=== PATIENT | female | born 1955 | race Caucasian/White ===

== ENCOUNTER → 2017-01-07 | Day surgery (SDC) | payer OTHER ==
[~2017-01-07] MED LIST: ACETAMINOPHEN/HYDROcodone 325 MG/5 MG TAB ONE; BEDSIDE COMMODE1 MI1; BUPIVACAINE/EPINEPHRINE 0.25% PF 30 ML VIAL ONE; CALC500T35 PO; COUM5TAB PO; CPMMACHINE; DIFL500T PO; FISH1000 PO; GABA600T PO; KETOROLAC TROMETHAMINE 30 MG/ML (IVP) VIAL IV PUSH ONE; LACTATED RINGER'S 1000 ML INJ 1,000 ML ONE; LEXA10TA PO; LISI10TA3 PO; LOVA10TA PO; METO50TA PO; MIDAZOLAM HCL 2 MG/2 ML VIAL ONE; MULT1TAB84 PO; OMEP20TA PO; ONDANSETRON HCL 4 MG/2 ML VIAL IV PUSH ONE; OXYC1TAB63 PO; PERC5TAB12 PO; PROPOFOL 200 MG/20 ML AMP IV ONE; VITA1000 PO; VITACAP7 PO; ceFAZolin INJ 1,000 MG VIAL ONE
--- NOTE | 2017-01-07 16:45 | TN ---
cc: MANUEL MCKEON DATE OF SURGERY: 01/07/2017 PREOPERATIVE DIAGNOSIS 1. Left knee painful hardware. 2. Status post left distal femur open treatment internal fixation using multiple 7.3-mm cannulated screws. 3. Left knee osteoarthritis, genu valgus deformity. POSTOPERATIVE DIAGNOSIS 1. Left knee painful hardware. 2. Status post left distal femur open treatment internal fixation using multiple 7.3-mm cannulated screws. 3. Left knee osteoarthritis, genu valgus deformity. PROCEDURE Left knee arthrotomy, removal of three 7.3 mm cannulated screws. SURGEON Zion Mckeon MD ASSESSMENT Staff SPECIMENS: None. ESTIMATED BLOOD LOSS: 200 cc. COMPLICATIONS None ANESTHESIA General. DRAINS: None. CONDITION: Condition stable PLAN OF ACTIVITY: The plan of activity is per orders. PROCEDURE The patient was operating room had satisfactory general anesthesia by Dr. Og department of Anesthesia. The left lower extremity was prepped and draped in usual sterile manner. 10 cc of 0.25% Marcaine was used for local anesthesia. Under fluoroscopic guidance identification of the hardware was made. A longitudinal incision was made laterally. Dissection carried through the center of tissue and scar tissue. Carried through the iliotibial band and a dissection was made of each three screws separately. The soft tissue bony was removed from the screw head. Then each screw was removed. Bone wax was placed over the screw holes. The wound was irrigated with copious amounts. The wound itself was dried. The Iliotibial band was repaired using 2-0 Vicryl sutures. Subcutaneous layers with 2-0 Vicryl. Skin approximated interrupted 2-0 nylon. Sterile dressings were applied. The patient tolerated the procedure well and arrived to the Recovery Room in stable and satisfactory condition. MD ISAK Vargas/mary alice /3:04 PM /4:37 PM
== END | disposition home or self-care (01) ==
LOC: ESDC 12:22
PROVIDERS: ATTEND Orthopaedic Surgery Orthopaedic Surgery of the Spine
DX: T84.84XA Pain due to internal orthopedic prosthetic devices, implants and grafts, initial encounter (principal); M17.12 Unilateral primary osteoarthritis, left knee; M21.062 Valgus deformity, not elsewhere classified, left knee
CPT/HCPCS: 01400; 20680; 73560; 76000; J0690; J1885; J2250; J2405; J3010; J7120

== ENCOUNTER 2017-02-04 16:12 | Inpatient (IN) | payer OTHER, MEDICARE ==
[~2017-02-04] VITALS: Ht 177.8 cm; Wt 100.6 kg
[2017-02-28] MEDS ORDERED: CALC500T35 PO (15:18)
[2017-02-28] MEDS ORDERED: FISH1000 PO (15:18)
[2017-02-28] MEDS ORDERED: LOVA10TA PO (15:18)
[2017-02-28] MEDS ORDERED: VITA1000 PO (15:18)
[2017-02-28] MEDS ORDERED: MULT1TAB84 PO (15:18)
[2017-02-28] MEDS ORDERED: LEXA10TA PO (15:18)
[2017-02-28] MEDS ORDERED: OMEP20TA PO (15:18)
[2017-02-28] MEDS ORDERED: OXYC1TAB63 PO (15:18)
[2017-02-28] MEDS ORDERED: METO50TA PO (15:18)
[2017-02-28] MEDS ORDERED: DIFL500T PO (15:18)
[2017-02-28] MEDS ORDERED: GABA600T PO (15:18)
[2017-02-28] MEDS ORDERED: LISI10TA3 PO (15:18)
[2017-02-28] MEDS ORDERED: VITACAP7 PO (15:18)
[2017-03-03] MEDS ORDERED: ePHEDrine/NS 25 MG/5 ML SYR IV ONE (08:49)
[2017-03-03] MEDS ORDERED: NEOSTIGMINE 3 MG/3 ML SYR IV ONE (08:49)
[2017-03-03] MEDS ORDERED: PROPOFOL 200 MG/20 ML AMP IV ONE (08:49)
[2017-03-03] MEDS ORDERED: ONDANSETRON HCL 4 MG/2 ML VIAL IV PUSH ONE (08:50)
[2017-03-03] MEDS ORDERED: LACTATED RINGER'S 1000 ML INJ 1,000 ML IV ONE (08:50)
[2017-03-03 11:57] VITALS: BP 135/87; PULSE 57; RESP 20; TEMP 98.4; O2SAT 96
[2017-03-03] MEDS ORDERED: GENTAMICIN SULFATE 80 MG/2 ML VIAL ONE (12:11)
[2017-03-03] MEDS ORDERED: LACTATED RINGER'S 1000 ML IV PRN (12:15)
[2017-03-03] MEDS ORDERED: METOPROLOL TARTRATE 25 MG TAB PO PRN (12:15)
[2017-03-03] MEDS ORDERED: SODIUM CHLORID 0.9% 500 ML IV PRN (12:15)
[2017-03-03] MEDS ORDERED: INSULIN HUMAN REGULAR 1,000 UNITS/10 ML VIAL SQ PRN (12:15)
[2017-03-03] MEDS ORDERED: ROPIVACAINE PERI-ARTICULAR INJECTION. P-ARTICULR SCH ×5 (12:15)
[2017-03-03] MEDS ORDERED: VANCOMYCIN 1000 MG/NS 250 ML (for <70 kg) IV SCH ×2 (12:15)
[2017-03-03] MEDS ORDERED: POVIDONE IODINE 5% (ANTISEPSIS KIT) 4 APPLICATIONS EACH NARE PRN (12:15)
[2017-03-03] MEDS ORDERED: CHLORHEXIDINE GLUCONATE 2 % 1 PACK (2 CLOTHS) TOPICAL PRN (12:15)
[2017-03-03] MEDS ORDERED: CHLORHEXIDINE GLUCONATE 4% SOLN 120 ML BTL TOPICAL SCH (12:15)
[2017-03-03] MEDS ORDERED: ceFAZolin 2 GM PREMIX 50 ML IV SCH (12:15)
[2017-03-03 12:44] LABS: AUTOMATED NEUTROPHIL # 2.3 TH/MM3 (1.8-7.7); BASOPHIL % 0.7 % (0.0-2.0); EOSINOPHIL # 0.1 TH/MM3 (0-0.4); EOSINOPHIL % 3.2 % (0.0-4.0); HEMATOCRIT 37.8 % (35.0-46.0); HEMO FLAGS DIFF FINAL; LYMPH % 34.3 % (9.0-44.0); LYMPHOCYTE # 1.5 TH/MM3 (1.0-4.8); MEAN CELL VOLUME 90.6 FL (80.0-100.0); MEAN CORPUSCULAR HEMOGLOBIN 29.1 PG (27.0-34.0); MEAN CORPUSCULAR HGB CONC 32.1 % (32.0-36.0); MONO % 10.1 % (0.0-8.0); NEUT % 51.7 % (16.0-70.0); PLATELET COUNT 231 TH/MM3 (150-450); RED BLOOD COUNT 4.18 MIL/MM3 (4.00-5.30); RED CELL DISTRIBUTION WIDTH 14.7 % (11.6-17.2); WHITE BLOOD COUNT 4.5 TH/MM3 (4.0-11.0)
[2017-03-03] MEDS ORDERED: FAMOTIDINE 20 MG/2 ML VIAL ONE (13:13)
[2017-03-03] MEDS ORDERED: fentaNYL CITRATE 250 MCG/5 ML AMP ONE ×3 (13:13→15:03)
[2017-03-03] MEDS ORDERED: MIDAZOLAM HCL 2 MG/2 ML VIAL ONE (13:13)
[2017-03-03] MEDS ORDERED: DEXAMETHASONE SOD PHOS 4 MG/ML VIAL ONE (13:14)
[2017-03-03] MEDS ORDERED: ACETAMINOPHEN 1000 MG/100 ML VIAL IV ONE (13:14)
[2017-03-03] MEDS ORDERED: ALUMINUM/MAGNESIUM/SIMETH 30 ML CUP PO PRN (16:30)
[2017-03-03] MEDS ORDERED: oxyCODONE/ACETAMINOPHEN 7.5 MG/325 MG TAB PO PRN (16:30)
[2017-03-03] MEDS ORDERED: ZOLPIDEM TARTRATE 5 MG TAB PO PRN (16:30)
[2017-03-03] MEDS ORDERED: Post-op Orders (for Pharmacy) MISC XX ONE (16:30)
[2017-03-03] MEDS ORDERED: ONDANSETRON HCL 4 MG/2 ML VIAL IVP PRN (16:30)
--- NOTE | 2017-03-03 16:39 | HHI.FF ---
Face to Face Verification Diagnosis: (1) Osteoarthritis of left knee Physical Therapy Gait training, Transfer training, bed to chair Knee: Total knee, Protocol: Left, Full weight bearing Canvas Knee Splint: Other (at night while sleeping for first 4 weeks ) Right LE Weight Bearing: WB as tolerated Left LE Weight Bearing: WB as tolerated Nursing RN: 3 days/week x 2 weeks Nursing: Dressing changes (clean incision with alcohol and apply dry sterile dressing ) Additional Instructions Pt/INR q Friday and , call/text results to Lennie ARAUJO [phone] I have seen patient Christiana Calzada on 03/03/17. My clinical findings support the need for the requested home health care services because: Deconditioned w/ increased weakness I certify that my clinical findings support that this patient is homebound because: Post-op weakness Masoud Sánchez MD Mar 03, 2017 16:39
--- NOTE | 2017-03-03 16:40 | HHI.PR ---
Immediate Post Op Note Procedure Date: Mar 03, 2017 Pre Op Diagnosis: R Knee Severe OA,Genu Valgus deformity Post Op Diagnosis: Same Surgeon: Masoud Sánchez MD Compressed Gas Tester(s): Lennie Dowling PA-C Procedure: R TKR Complications: None Specimen(s) removed: None Estimated blood loss: <50cc Anesthesia: General, Regional Block, Local Drains: Hemovac Patient to: PACU Patient Condition: Good Implant/Devices: SEE IMPLANT LOG (if applicable) Date/Time of Procedure: SEE SURGICAL CARE RECORD Masoud Sánchez MD Mar 03, 2017 16:40
[2017-03-03] MEDS ORDERED: BEDSIDE COMMODE1 MI1 (16:41)
[2017-03-03] MEDS ORDERED: CPMMACHINE (16:41)
[2017-03-03] MEDS ORDERED: *morphine SULFATE 8 MG/ML PERIprocedure ONLY ONE (16:47)
[2017-03-03] MEDS ORDERED: SODIUM CHLORIDE 0.9% FLUSH 10 ML FLUSH IV FLUSH PRN (17:00)
[2017-03-03] MEDS ORDERED: MORPHINE SULFATE 4 MG/ML INJ IM PRN (17:00)
[2017-03-03] MEDS ORDERED: LACTATED RINGER'S 1000 ML INJ 1,000 ML IV SCH (17:00)
--- NOTE | 2017-03-03 18:21 | RADRPT ---
EXAM DATE/TIME: 03/03/2017 17:48 [facility] COMPARISON: KNEE LEFT LTD (1 OR 2VWS), January 07, 2017, 14:40. INDICATIONS : Post op left knee. MEDICAL HISTORY : None. SURGICAL HISTORY : None. ENCOUNTER: Initial ACUITY: 1 day PAIN SCORE: Non-responsive. LOCATION: Left knee FINDINGS: The patient is status post left total arthroplasty. Skin ezekiel, subcutaneous emphysema and soft tis tesfaye swelling identified. The tibial and femoral components appear well seated. CONCLUSION: Postoperative changes. Eulalio Forde MD on March 03, 2017 at 18:19 Board Certified Radiologist. This report was verified electronically.
[2017-03-03] MEDS ORDERED: DO NOT ADM ANY ANTICOAGULANT DRUGS PRN (18:45)
--- NOTE | 2017-03-03 20:43 | PD.CONS ---
[facility] By Dr. [facility] Reason for Consult Medical management status post right total knee replacement Primary Care Physician Mindi Montelongo M.D. Diagnoses: History of Present Illness This a pleasant 62-year-old female patient with a past medical history which includes lower back and right lower extremity neuropathy, degenerative disc disease, herniated disc lumbar area, anxiety/depression, hypertension, hyperlipidemia and GERD. Patient reports she has had osteoarthritis for quite some time and her left knee and she probably should have surgery years ago. This osteoarthritis was exacerbated by fall on , which was treated with placement of internal dependence. Patient then underwent right total knee replacement today 03/03/[address] Sánchez. We have been consulted for assistance with postoperative medical management. Patient seen in PACU mildly altered due to general anesthesia therefore information gathered from patient as well as prior computerized charting. Patient reports intact sensation left lower extremity is able to wiggle bilateral toes with brisk cap refill and positive pedal pulses bilaterally. Patient appears to be in no acute distress at this time and reports pain is tolerable. Patient denies nausea vomiting diarrhea constipation, shortness of breath, black tarry stools or bright red blood per rectum, chest pain, fevers or chills are to surgery. Patient reports she's been in her normal state of health. Patient offers no specific complaints at this time. Review of Systems Except as stated in HPI: all other systems reviewed are Neg Past Family Social History Allergies: Coded Allergies: No Known Allergies (Unverified , 03/03/17) Past Medical History lower back and right lower extremity neuropathy, degenerative disc disease, herniated disc lumbar area, anxiety/depression, hypertension, hyperlipidemia and GERD Past Surgical History Left foot bunionectomy, left hammertoe repair, left knee pain placement, left knee pain removed January 2017, SI joint pending with Dr. Spencer Reported Medications Multivitamin Adults (Multiple Vitamins W/ Minerals) 1 Tab 1 Tab PO DAILY B Complex (B-Complex Vitamins) 1 Cap 1 Cap PO DAILY Fish Oil ([place]-3 Fatty Acids) 1,000 Mg Cap 1 Cap PO DAILY Calcium (Oyster Shell) 500 Mg Tab 1 Tab PO DAILY Vitamin D-1000 (Cholecalciferol) 1,000 Unit Tab 1,000 Units PO DAILY Oxycodone-Acetaminophen 5-325 mg Tab 1 Tab PO Q6H PRN Gabapentin 600 Mg Tab 600 Mg PO TID Diflunisal 500 Mg Tab 500 Mg PO BID Omeprazole 20 Mg Tab 20 Mg PO DAILY Metoprolol Tartrate 50 Mg Tab 50 Mg PO BID Lexapro (Escitalopram Oxalate) 10 Mg Tab 10 Mg PO DAILY Lisinopril 10 Mg Tab 10 Mg PO DAILY Lovastatin 10 Mg Tab 10 Mg PO DAILY Active Ordered Medications Current Medications Medications (Trade) Dose Ordered Sig/Erica Route Start Time Stop Time Status Last Admin Chlorhexidine Gluconate 1 applic 1 applic ONCE TOPICAL 03/03/17 12:15 03/06/17 12:14 (Naropin 0.5% Pf Inj/Toradol Inj/ Adrenalin (1:1000) Inj/ Duraclon Inj/NS Inj) 100 ml @ 200 mls/hr ONCE P-ARTICULR 03/03/17 12:15 03/04/17 12:14 03/03/17 15:37 (Lexapro) 10 mg DAILY PO 03/04/17 09:00 (Neurontin) 600 mg TID PO 03/03/17 18:00 03/03/17 21:30 (Prinivil) 10 mg DAILY PO 03/04/17 09:00 (Pravachol) 10 mg DAILY PO 03/04/17 09:00 (Lopressor) 50 mg BID PO 03/03/17 21:00 03/03/17 21:30 Pantoprazole Sodium 20 mg 20 mg DAILY PO 03/04/17 09:00 (Lr 1000 ml Inj) 1,000 ml @ 80 mls/hr [id number] IV 03/03/17 17:00 03/03/17 17:00 (NS Flush) 2 ml UNSCH PRN IV FLUSH 03/03/17 17:00 Sodium Chloride 2 ml 2 ml BID IV FLUSH 03/03/17 21:00 03/03/17 21:00 (Ancef Inj/NS Inj) 100 ml @ 200 mls/hr Q6H IV 03/03/17 20:00 03/04/17 08:29 03/03/17 20:00 (Coumadin) Follow Sliding Scale... DAILY@1600 PO 03/04/17 16:00 (Coumadin Booklet) 1 ONCE ONCE XX 03/04/17 16:00 03/04/17 16:01 (Morphine Inj) 4 mg Q3H PRN IM 03/03/17 17:00 03/03/17 19:44 (Zofran Inj) 4 mg Q6H PRN IVP 03/03/17 16:30 (Mag-Al Plus Susp Liq) 30 ml Q6H PRN PO 03/03/17 16:30 (Ambien) 5 mg HS PRN PO 03/03/17 16:30 (Percocet 7.5-325 Mg) 1 tab Q6H PRN PO 03/03/17 16:30 03/03/17 21:30 (Percocet 7.5-325 Mg) 2 tab Q6H PRN PO 03/03/17 16:30 Miscellaneous Information ALL NURSING DEPARTME... UNSCH PRN .XX 03/03/17 18:45 03/04/17 18:44 (Romazicon Inj) 0.2 mg Q1M PRN IV PUSH 03/03/17 21:00 (Ativan) 1 mg Q4H PRN PO 03/03/17 21:00 (Ativan Inj) 1 mg Q4H PRN IV PUSH 03/03/17 21:00 (Ativan) 2 mg Q2H PRN PO 03/03/17 21:00 (Ativan Inj) 2 mg Q2H PRN IV PUSH 03/03/17 21:00 (Ativan Inj) 2 mg Q1H PRN IV PUSH 03/03/17 20:45 (Ativan Inj) 2 mg Q15M PRN IV PUSH 03/03/17 20:45 (Vitamin B1) 100 mg DAILY PO 03/04/17 09:00 (Folate) 1 mg DAILY PO 03/04/17 09:00 Family History Brother secondary to service Sister had a history of CAD status post CABG secondary to lung cancer was tobacco user Social History Patient lives at home with her Denies tobacco use now or in the past also denies illicit drug use Admits to EtOH use approximately a 6 pack of beer per day Physical Exam Vital Signs Vital Signs Date Time Temp Pulse Resp B/P Pulse Ox O2 Delivery O2 Flow Rate FiO2 03/03/17 19:00 66 12 101/57 97 Nasal Cannula 2 03/03/17 18:30 61 12 112/72 99 Nasal Cannula 2 03/03/17 18:00 98.3 58 12 128/82 99 Nasal Cannula 2 03/03/17 17:45 58 12 102/74 99 Nasal Cannula 2 03/03/17 17:30 60 12 120/84 99 Nasal Cannula 2 03/03/17 17:15 57 12 131/85 99 Nasal Cannula 2 03/03/17 17:00 60 12 139/88 99 Nasal Cannula 2 03/03/17 16:45 62 12 149/94 99 Nasal Cannula 2 03/03/17 16:35 98.2 67 12 145/90 98 Nasal Cannula 2 03/03/17 11:57 98.4 57 20 135/87 96 Physical Exam GENERAL: This is a well-nourished, well-developed patient, in no apparent distress. SKIN: Postoperative dressing and knee immobilizer left lower extremity HEAD: Atraumatic. Normocephalic. No temporal or scalp tenderness. EYES: Extraocular motions intact. No scleral icterus. No injection or drainage. CARDIOVASCULAR: Regular rate and rhythm without murmurs, gallops, or rubs. RESPIRATORY: Clear to auscultation. Breath sounds equal bilaterally. No wheezes , rales, or rhonchi. GASTROINTESTINAL: Abdomen soft, non-tender, nondistended. No hepato-splenomegaly , or palpable masses. No guarding. MUSCULOSKELETAL: No calf tenderness. Negative Homans sign bilaterally. Postoperative dressing and knee immobilizer left lower extremity NEUROLOGICAL: Awake and alert. Motor and sensory grossly within normal limits with the exception of left lower extremity postoperative. Five out of 5 muscle strength in all muscle groups, with the exception of left lower extremity postoperative. Normal speech. Laboratory Laboratory Tests Test 03/03/17 03/03/17 11:55 12:00 Blood Type O POSITIVE O POSITIVE White Blood Count 4.5 Red Blood Count 4.18 Hemoglobin 12.1 Hematocrit 37.8 Mean Corpuscular Volume 90.6 Mean Corpuscular Hemoglobin 29.1 Mean Corpuscular Hemoglobin 32.1 Concent Red Cell Distribution Width 14.7 Platelet Count 231 Mean Platelet Volume 7.6 Neutrophils (%) (Auto) 51.7 Lymphocytes (%) (Auto) 34.3 Monocytes (%) (Auto) 10.1 Eosinophils (%) (Auto) 3.2 Basophils (%) (Auto) 0.7 Neutrophils # (Auto) 2.3 Lymphocytes # (Auto) 1.5 Monocytes # (Auto) 0.5 Eosinophils # (Auto) 0.1 Basophils # (Auto) 0.0 CBC Comment DIFF FINAL Differential Comment Antibody Screen NEGATIVE Crossmatch Leukocyte-Reduced Red Blood Cells Blood Bank Comment Result Diagram: 03/03/17 1200 Imaging Last Impressions Knee X-Ray 03/03/17 1626 Signed Impressions: Service Date/Time: Friday, March 03, 2017 17:48 - CONCLUSION: Postoperative changes. Eulalio Forde MD Assessment and Plan Problem List: (1) Osteoarthritis of left knee ICD Code: M17.12 Status: Acute (2) HTN (hypertension) ICD Code: I10 Status: Chronic (3) EtOH dependence ICD Code: F10.20 Status: Chronic Assessment and Plan This a pleasant 62-year-old female patient with a past medical history which includes lower back and right lower extremity neuropathy, degenerative disc disease, herniated disc lumbar area, anxiety/depression, hypertension, hyperlipidemia and GERD. Patient reports she has had osteoarthritis for quite some time and her left knee and she probably should have surgery years ago. This osteoarthritis was exacerbated by fall on , which was treated with placement of internal dependence. Patient then underwent right total knee replacement today 03/03/[address] Sánchez. Osteoarthritis/valgus deformity Status post right total knee replacement 03/03/[address] Sánchez Pain management, anticoagulation, antibiotics per orthopedic surgery PT consult EtOH dependence- chronic patient drinks approximately 6 pack of beer per day CIWA protocol And thiamine and folic acid daily Monitor for signs of withdrawal Hypertension- chronic Continue patient's home lisinopril 10 mg daily and metoprolol 50 mg twice a day with hold parameters GERD- chronic Protonix 20 mg daily Hyperlipidemia- chronic pravastatin daily H&H in a.m. DVT prophylaxis with Coumadin per orthopedic surgery Discussed with nursing and patient Written by Rach Staton, acting as scribe for Dr. Cummings on 03/03/17 at 22: 51. This note was transcribed by scribe [Rach Staton]. I, Dr. Trace Cummings personally performed the history, physical exam, and medical decision making; and confirmed the accuracy of the information in the transcribed note. Authenticated by Dr. Trace Cummings on 03/03/17 at 22:51. Rach Staton Mar 03, 2017 20:43 Trace Cummings MD Mar 04, 2017 06:56
[2017-03-03] MEDS ORDERED: LORazepam 2 MG/ML VIAL IV PUSH PRN ×4 (20:45→21:00)
[2017-03-03] MEDS ORDERED: THIAMINE HCL 100 MG TAB PO ONE (21:00)
[2017-03-03] MEDS: SODIUM CHLORIDE 0.9% FLUSH 10 ML FLUSH IV FLUSH SCH (21:00)
[2017-03-03] MEDS ORDERED: LORazepam 2 MG TAB PO PRN (21:00)
[2017-03-03] MEDS ORDERED: FLUMAZENIL 0.5 MG/5 ML VIAL IV PUSH PRN (21:00)
[2017-03-03] MEDS ORDERED: LORazepam 1 MG TAB PO PRN (21:00)
[2017-03-03] MEDS: METOPROLOL TARTRATE 50 MG TAB PO SCH (21:30)
[2017-03-03] MEDS: GABAPENTIN 300 MG CAP PO SCH (21:30)
[2017-03-04 03:00] VITALS: BP 92/61; PULSE 61; RESP 16; TEMP 97.5; O2SAT 94
[2017-03-04 06:21] LABS: HEMATOCRIT 27.5 % (35.0-46.0); REVIEW FLAG FINAL
[2017-03-04 06:22] LABS: INTERNATIONAL NORMALIZED RATIO 1.1 RATIO; PROTHROMBIN TIME - PATIENT 11.8 SEC (9.8-11.6)
[2017-03-04 07:30] VITALS: BP 109/83; PULSE 64; RESP 20; TEMP 96.8; O2SAT 93
[2017-03-04 08:02] VITALS: O2SAT 95
[2017-03-04] MEDS ORDERED: PRAVASTATIN SOD 10 MG TAB PO SCH (09:00)
[2017-03-04] MEDS ORDERED: PANTOPRAZOLE SOD 20 MG DELAYED RELEASE TAB PO SCH (09:00)
[2017-03-04] MEDS ORDERED: THIAMINE HCL 100 MG TAB PO SCH (09:00)
[2017-03-04] MEDS ORDERED: ESCITALOPRAM OXALATE 10 MG TAB PO SCH (09:00)
[2017-03-04] MEDS ORDERED: LISINOPRIL 10 MG TAB PO SCH (09:00)
[2017-03-04] MEDS: METOPROLOL TARTRATE 50 MG TAB PO SCH (09:00)
[2017-03-04] MEDS ORDERED: FOLIC ACID 1 MG TAB PO SCH (09:00)
[2017-03-04] MEDS: GABAPENTIN 300 MG CAP PO SCH ×2 (10:04→15:55)
[2017-03-04] MEDS: oxyCODONE/ACETAMINOPHEN 7.5 MG/325 MG TAB PO PRN ×2 (10:05→15:55)
[2017-03-04] MEDS: SODIUM CHLORIDE 0.9% FLUSH 10 ML FLUSH IV FLUSH SCH (10:08)
[2017-03-04 11:30] VITALS: BP 94/50; PULSE 65; RESP 20; TEMP 97.2; O2SAT 97
--- NOTE | 2017-03-04 14:47 | HHI.PR ---
Subjective Remarks Patient reports she is feeling ok. Pain is controlled. Orthopedics planning to discharge today. Objective Vitals Vital Signs Date Time Temp Pulse Resp B/P Pulse Ox O2 Delivery O2 Flow Rate FiO2 03/04/17 11:30 97.2 65 20 94/50 97 03/04/17 08:02 95 21 03/04/17 07:30 96.8 64 20 109/83 93 03/04/17 03:00 97.5 61 16 92/61 94 03/04/17 02:00 98.6 59 14 101/41 95 Room Air 03/04/17 01:00 59 13 95/53 94 Room Air 03/04/17 00:00 98.3 55 14 96/48 95 Room Air 03/03/17 23:00 58 13 96/53 95 Room Air 03/03/17 22:30 15 03/03/17 21:29 58 12 105/62 92 Room Air 03/03/17 19:00 66 12 101/57 97 Nasal Cannula 2 03/03/17 18:30 61 12 112/72 99 Nasal Cannula 2 03/03/17 18:00 98.3 58 12 128/82 99 Nasal Cannula 2 03/03/17 17:45 58 12 102/74 99 Nasal Cannula 2 03/03/17 17:30 60 12 120/84 99 Nasal Cannula 2 03/03/17 17:15 57 12 131/85 99 Nasal Cannula 2 03/03/17 17:00 60 12 139/88 99 Nasal Cannula 2 03/03/17 16:45 62 12 149/94 99 Nasal Cannula 2 03/03/17 16:35 98.2 67 12 145/90 98 Nasal Cannula 2 I/O 03/03/17 03/03/17 03/03/17 03/04/17 03/04/17 03/04/17 07:00 15:00 23:00 07:00 15:00 23:00 Intake Total 1600 ml 1005 ml Output Total 300 ml 200 ml Balance 1300 ml 805 ml Intake Oral 280 ml Other 1600 ml 725 ml Output Urine Total 200 ml 200 ml Drainage Total 50 ml Estimated Blood Loss 50 ml # Voids 1 Result Diagram: 03/04/17 0537 Imaging Last Impressions Knee X-Ray 03/03/17 1626 Signed Impressions: Service Date/Time: Friday, March 03, 2017 17:48 - CONCLUSION: Postoperative changes. Eulalio Forde MD Objective Remarks GENERAL: This is a well-nourished, well-developed patient, in no apparent distress. CARDIOVASCULAR: Regular rate and rhythm without murmurs, gallops, or rubs. RESPIRATORY: Clear to auscultation. Breath sounds equal bilaterally. No wheezes , rales, or rhonchi. GASTROINTESTINAL: Abdomen soft, non-tender, nondistended. Normal active bowel sounds MUSCULOSKELETAL: Left knee post op dressing is intact. Neurovascularly intact distally. NEURO: Alert & Oriented x4 to person, place, time, situation. Moves all ext x4 A/P Problem List: (1) Osteoarthritis of left knee ICD Code: M17.12 Status: Acute (2) HTN (hypertension) ICD Code: I10 Status: Chronic (3) EtOH dependence ICD Code: F10.20 Status: Chronic Assessment and Plan 62-year-old female patient with a past medical history which includes lower back and right lower extremity neuropathy, degenerative disc disease, herniated disc lumbar area, anxiety/depression, hypertension, hyperlipidemia and GERD. Patient reports she has had osteoarthritis for quite some time and her left knee and she probably should have surgery years ago. Patient underwent right total knee replacement 03/03/[address] Sánchez. Osteoarthritis/valgus deformity Status post right total knee replacement 03/03/[address] Sánchez Pain management, anticoagulation, antibiotics per orthopedic surgery PT consult EtOH dependence- chronic patient drinks approximately 6 pack of beer per day CIWA protocol And thiamine and folic acid daily No signs of withdrawal currently Hypertension- chronic Continue patient's home lisinopril 10 mg daily and metoprolol 50 mg twice a day with hold parameters GERD- chronic Protonix 20 mg daily Hyperlipidemia- chronic pravastatin daily DVT prophylaxis with Coumadin per orthopedic surgery Discharge Planning Hospitalist clear for discharge. Kennedy Shearer MD Mar 04, 2017 14:47
[2017-03-04] MEDS ORDERED: COUM5TAB PO (15:39)
[2017-03-04] MEDS ORDERED: PERC5TAB12 PO (15:44)
[2017-03-04] MEDS ORDERED: WARFARIN SOD 5 MG TAB PO SCH (16:00)
[2017-03-04] MEDS ORDERED: WARFARIN SOD 7.5 MG TAB PO ONE (16:00)
--- NOTE | 2017-03-04 23:08 | MP ---
cc: MANUEL SÁNCHEZ THERESE A. M.D. DATE OF SURGERY 03/03/17 PREOPERATIVE DIAGNOSIS 1. Left knee severe tricompartmental osteoarthritis, genu valgus deformity. 2. Status post left distal femur medial femoral condyle fracture open treatment internal fixation July 15, 2016. Dr. Elise. 3. Status post left knee arthrotomy, removal of three cannulated screws January 07, 2017 - Dr. Zion Sánchez POSTOPERATIVE DIAGNOSIS 1. Left knee severe tricompartmental osteoarthritis, genu valgus deformity. 2. Status post left distal femur medial femoral condyle fracture open treatment internal fixation July 15, 2016. Dr. Elise. 3. Status post left knee arthrotomy, removal of three cannulated screws January 07, 2017 - Dr. Zion Sánchez PROCEDURE Left total knee arthroplasty - cemented [employer] SURGEON Natasha Sánchez MD [employer] TEAM MEMBER Marcos Dowling, JANES SPECIMENS None. ESTIMATED BLOOD LOSS Less than 50 mL COMPLICATIONS None ANESTHESIA General, adductor canal block DRAINS One TOURNIQUET TIME 70 minutes at 300 mmHg CONDITION Stable PLAN OF ACTIVITY As per orders. PROCEDURE IN DETAIL My customer service assistant Lennie Dowling, JANES, was present for entire surgical case. She was medically necessary for entire case because of the complexity of the case and to facilitate the performance of the procedure. The SUPERVISOR HARDBOARD at the back table is not a skill set for this case to manipulate the instruments e.g. the multiple different types of soft tissue tractors, trial implants and permanent implants including bone cement. The patient was into the operating room and had satisfactory general endotracheal anesthesia by Dr. Jose R Virgen, Department of Anesthesia. The patient also had regional abductor canal block at the same time. Left lower extremity was prepped and draped in usual sterile manner. The extremity was exsanguinated initially by elevation, tourniquet was inflated to 250 mmHg. The patient developed hypertension. This tourniquet was released at 2 minutes. The patient's blood pressure came down within normal limits. Then the extremity was then exsanguinated with an Mahesh wrap. Tourniquet was deflated at 300 mmHg throughout the main portion of the surgical case. Anterior medial exposure to the knee was made. Paramedian capsulotomy was performed. Patient found to have severe tricompartmental osteoarthritis with genu valgus deformity. Patient found to have a significant defect within the lateral tibial plateau. The remaining portion of medial lateral meniscus removed. The anterior cruciate ligament was already gone. Posterior cruciate ligament was preserved. Prepatellar fat pad was surgically excised. Using the [employer] total knee arthroplasty system IM guide was used for the distal femur to accept a 65 mm femoral component. The extramedullary guide was used for the proximal tibia and this to accept a 71 mm tibial component. Appropriate balancing was made of knee in both flexion/extension. A 12 mm insert was used, found be stable and satisfactory. The undersurface of the patella was removed to accept a 3 mm patellar prosthesis. All trial components were removed. Preparation for cementing was made. The knee was injected with 100 mL of local anesthesia provided by the Department of Pharmacy. The knee was irrigated with sterile saline antibiotic solution. Two packages of high viscosity bone cement by [employer] were used. First the tibial component was cemented followed by the femoral component and then the patella component. All excess bone cement was removed. Bone cement was allowed to harden for 13 minutes. A 12 x 71 mm polyethylene plastic was ___ onto the tibial tray and the appropriate clipping mechanism was used to secure the polyethylene plastic to the tibial tray. Tourniquet was deflated. All bleeders had been coagulated. Patient found to have an excellent tracking of the patellofemoral compartment with a "no thumbs technique". The knee was irrigated with 4000 mL of sterile saline antibiotic solution using Water-Pik irrigation system. The wound was closed over two Hemovac drains hooked up to autovac type system. The capsule and extensor mechanism was repaired with multiple #2 Tycron sutures. Subcutaneous layers with 2-0 Vicryl. Skin approximated with skin ezekiel. Sterile dressings were applied. The patient tolerated the procedure well and went to recovery room in stable and satisfactory condition. MD ISAK Vargas/ /4:28 PM /10:42 PM
[2017-03-05] MEDS ORDERED: WARFARIN SOD 5 MG TAB PO SCH (16:00)
--- NOTE | 2017-03-18 10:16 | HHI.DS ---
Discharge Summary Admission Date Mar 03, 2017 at 11:08 Discharge Date: Mar 04, 2017 Admitting Diagnosis left knee osteoarthritis Diagnosis: (1) Osteoarthritis of left knee Diagnosis: Principal Procedures left total knee arthroplasty Brief History This is a 62 year old female patient who presents with the following history. Patient sustained left medial femoral condyle fracture on 07/13/16. She underwent ORIF by Dr. Elise on 07/15/16. She has used a walker since that period of time. She has also tried tylenol for analgesic medication. She has had numerous cortisone injections. Patient is ready to proceed forward with surgical intervention to improve her pain and ambulation. Imaging x-rays show satisfactory removal of hardware, tri compartment OA with joint space narrowing Hospital Course Patient underwent satisfactory anaesthesia by the dept of anaesthesia. She underwent left total knee arthroplasty on the date of admission. She did well following the procedure. She was started on low dose coumadin night before surgery and will be treated with low dose coumadin for four weeks for dvt prop. She was started with full weight bearing ambulation and CPM machine on POD #1. She was also treated with sequentials and knee high TEDs during her stay. She progressed well and was discharged on pod #1 in stable condition with home health care nursing and PT. Pt Condition on Discharge: Stable Discharge Disposition: Disch w/ Home Health Serv Discharge Instructions Diet Instructions: Coumadin (Warfarin) Diet Activities You Can Perform: Weight Bearing as Lennie Brady March 18, 2017 10:16
== END 2017-03-04 17:18 | disposition home health service (06) | DRG 470 ==
LOC: HSDI 03-03 11:08 → HPAC 03-03 22:56 → N06B 03-04 03:00
PROVIDERS: ADMIT Orthopaedic Surgery Orthopaedic Surgery of the Spine; ATTEND Orthopaedic Surgery Orthopaedic Surgery of the Spine
PROC: 3E0T3CZ (ICD-10-PCS; 2017-03-03)
PROC: 0SRD0J9 Replacement of Left Knee Joint with Synthetic Substitute, Cemented, Open Approach (ICD-10-PCS; principal; 2017-03-03 13:53)
DX: M17.12 Unilateral primary osteoarthritis, left knee (principal); I10 Essential (primary) hypertension; M21.062 Valgus deformity, not elsewhere classified, left knee; K21.9 Gastro-esophageal reflux disease without esophagitis; E78.5 Hyperlipidemia, unspecified; F32.9 Major depressive disorder, single episode, unspecified; F41.9 Anxiety disorder, unspecified; M51.36 Other intervertebral disc degeneration, lumbar region; M51.26 Other intervertebral disc displacement, lumbar region; G57.91 Unspecified mononeuropathy of right lower limb; F10.20 Alcohol dependence, uncomplicated
CPT/HCPCS: 73560; 85014; 85018; 85025; 85610; 86850; 86900; 86901; 86920; 94150; C1776; J0131; J0171; J0690; J0735; J1100; J1580; J1885; J2250; J2270; J2405; J2710; J2795; J3010; J3370; J7050; J7120; L1830

== ENCOUNTER 2017-11-09 09:03 | Emergency (ER) | payer OTHER ==
[~2017-11-09] VITALS: Ht 177.8 cm; Wt 102.0 kg
[~2017-11-09 09:03] MED LIST changes: -ACETAMINOPHEN/HYDROcodone 325 MG/5 MG TAB ONE; -BUPIVACAINE/EPINEPHRINE 0.25% PF 30 ML VIAL ONE; +CALC12502 PO; -CALC500T35 PO; -DIFL500T PO; -FISH1000 PO; -KETOROLAC TROMETHAMINE 30 MG/ML (IVP) VIAL IV PUSH ONE; -LACTATED RINGER'S 1000 ML INJ 1,000 ML ONE; -MIDAZOLAM HCL 2 MG/2 ML VIAL ONE; -MULT1TAB84 PO; -OMEP20TA PO; +OMEP20TA93 PO; -ONDANSETRON HCL 4 MG/2 ML VIAL IV PUSH ONE; -OXYC1TAB63 PO; -PROPOFOL 200 MG/20 ML AMP IV ONE; -ceFAZolin INJ 1,000 MG VIAL ONE
[2017-11-09 09:05] VITALS: BP 175/109; PULSE 92; RESP 16; TEMP 98.5; O2SAT 96
--- NOTE | 2017-11-09 09:29 | PD ---
HPI Chief Complaint: Back/ Neck Pain or Injury Time Seen by Provider: 09:16 Travel History International Travel<30 days: No Contact w/Intl Traveler<30days: No Traveled to known affect area: No History of Present Illness HPI 62-year-old female presents to the emergency department with complaint of left- sided low back pain that radiates down the back of her left thigh 3 days. Says she thinks she rolled over in bed wrong. Has history of chronic low back pain with herniated disks. Denies encopresis, incontinence, saddle anesthesias. Denies IV drug use or cancer. Denies fever, vomiting, abdominal pain. Denies dysuria or urinary frequency. Denies paresthesias, loss of sensation, decreased range of motion, decreased strength to bilateral lower extremities. Dilatory with a limp to the left lower extremity. Pain 10/10. Worse with movement, sitting, standing straight. Decreased while at rest and positioned off the left side. Has been taking Percocet for symptom management. Described as aching, stabbing, shooting sensation. Dr. Combs his primary care provider. Sees pain management. History of hypertension and has not taken her metoprolol or lisinopril this morning. Denies chest pain, shortness of breath, headache. No known allergies. Has no other medical complaints. No other modifying factors or associated signs and symptoms. PFSH Past Medical History Depression: Yes Cancer: No Cardiovascular Problems: No High Cholesterol: Yes Diabetes: No Endocrine: No Genitourinary: No Hepatitis: No Hiatal Hernia: No Hypertension: Yes Immune Disorder: No Musculoskeletal: Yes (OA) Neurologic: Yes (NEUROPATHY, NERVE DAMAGE LOWER BACK) Reproductive: No Respiratory: No Thyroid Disease: No Tetanus Vaccination: < 5 Years Influenza Vaccination: Yes Past Surgical History Abdominal Surgery: No AICD: No Body Medical Devices: PIN LEFT FOOT Cardiac Surgery: No Ear Surgery: No Endocrine Surgery: No Eye Surgery: No Genitourinary Surgery: No Gynecologic Surgery: No Joint Replacement: No Neurologic Surgery: Yes (RIGHT SPINAL PIN) Oral Surgery: No Pacemaker: No Thoracic Surgery: No Other Surgery: Yes Social History Alcohol Use: Yes (3-4 beers daily) Tobacco Use: No Substance Use: No Allergies-Medications (Allergen,Severity, Reaction): Coded Allergies: No Known Allergies (Unverified Adverse Reaction, Unknown, 11/09/17) Reported Meds & Prescriptions Reported Meds & Active Scripts Active Robaxin (Methocarbamol) 500 Mg Tab 500 Mg PO QID PRN Ibuprofen 800 Mg Tab 800 Mg PO Q8H PRN Bedside Commode (Device) 1 Mis Mis 1 Ea .ROUTE DIRECTED Reported Percocet (Oxycodone-Acetaminophen) 5-325 mg Tab 1-2 Tab PO Q6H PRN B Complex (B-Complex Vitamins) 1 Cap 1 Cap PO DAILY Calcium (Oyster Shell) 500 Mg Tab 1 Tab PO DAILY Vitamin D-1000 (Cholecalciferol) 1,000 Unit Tab 1,000 Units PO DAILY Gabapentin 600 Mg Tab 600 Mg PO TID Omeprazole 20 Mg Tab 20 Mg PO DAILY Metoprolol Tartrate 50 Mg Tab 50 Mg PO BID Lexapro (Escitalopram Oxalate) 10 Mg Tab 10 Mg PO DAILY Lisinopril 10 Mg Tab 10 Mg PO DAILY Lovastatin 10 Mg Tab 10 Mg PO DAILY Review of Systems Except as stated in HPI: all other systems reviewed are Neg Physical Exam Narrative GENERAL: Well-nourished, well-developed female patient, in no acute distress; afebrile, nontoxic-appearing SKIN: Warm and dry. HEAD: Atraumatic. Normocephalic. EYES: Pupils equal and round. No scleral icterus. No injection or drainage. ENT: Mucosa pink and moist. Airway patent. NECK: Trachea midline. CARDIOVASCULAR: Regular rate. RESPIRATORY: No accessory muscle use. GASTROINTESTINAL: Abdomen soft, non-tender, nondistended. Positive bowel sounds. No hepato-splenomegaly, or palpable masses. No guarding. MUSCULOSKELETAL: Bilateral lower extremities supple and non-tense with 2+ pedal pulses and sensory intact; with full range of motion and 5/5 strength. 2 + DTRs bilaterally. Active dorsiflexion and extension of bilateral feet. Left straight leg raise is positive for low back pain. Ambulatory in room with limp to the left lower extremity. Sitting up in bed at 90. No obvious deformities. No clubbing. No cyanosis. No edema. BACK: No midline point tenderness on palpation of the lumbar spine. Tenderness on palpation of left lumbar paraspinal and iliosacral area. No obvious deformities. NEUROLOGICAL: Awake and alert. Oriented 3. No obvious cranial nerve deficits. Motor grossly within normal limits. Normal speech. Moves all extremities. 5/5 strength to all extremities. Sensory intact. PSYCHIATRIC: Appropriate mood and affect; insight and judgment normal. Data Data Last Documented VS Vital Signs Date Time Temp Pulse Resp B/P (MAP) Pulse Ox O2 Delivery O2 Flow Rate FiO2 11/09/17 09:05 98.5 92 16 175/109 (131) 96 Room Air Orders Orders Ketorolac Inj (Toradol Inj) (11/09/17 09:30) Orphenadrine Inj (Norflex Inj) (11/09/17 09:30) Ed Discharge Order (11/09/17 09:32) [facility] Medical Decision Making Medical Screen Exam Complete: Yes Emergency Medical Condition: Yes Medical Record Reviewed: Yes Differential Diagnosis Acute exacerbation of chronic low back pain, sciatica, low back strain Narrative Course 62-year-old female with acute exacerbation of chronic low back pain and left- sided sciatica. History of chronic low back pain and herniated disks. Denies encopresis, incontinence, saddle anesthesias. Denies IV drug use or cancer. Patient is afebrile and nontoxic-appearing. Denies fever, vomiting. No midline tenderness on palpation of the lumbar spine. Ambulatory in the room with a limp to the left lower extremity. Neuro exam is unremarkable. Toradol, Norflex administered in the ER. Patient has Percocet for pain management. Patient's blood pressure is elevated in the ER and she has not taken her medications this morning for hypertension. She states she'll take them when she gets home. She is asymptomatic. Ibuprofen, Robaxin prescribed for home. Instructed patient to follow up with pain management. Instructed patient to follow up with primary care provider. Patient verbalizes understanding and agreement with treatment plan. Patient is medically cleared and stable for discharge. Discussed reasons to return to the emergency department. Patient agrees with treatment plan. The patients vital signs are stable and the patient is stable for outpatient follow-up and treatment. Patient discharged home, stable and in no acute distress. Diagnosis Primary Impression: Acute exacerbation of chronic low back pain Additional Impression: Sciatica of left side Referrals: Pain Management Primary Care Physician Patient Instructions: Acute Low Back Pain (ED), General Instructions, Sciatica (ED) Additional Instructions: Tylenol or ibuprofen as directed and as needed for pain Robaxin as prescribed and as needed for muscle spasms Heating pad and/or ice to affected area to reduce pain Avoid aggravating activities; increase activity as tolerated Follow-up with primary care provider Return to emergency department immediately with worsening of symptoms Med/Other Pt SpecificInfo: Prescription(s) given Scripts Methocarbamol (Robaxin) 500 Mg Tab 500 MG PO QID Y for MUSCLE SPASM, #30 TAB 0 Refills Prov: Corinne Larsen 11/09/17 Ibuprofen (Ibuprofen) 800 Mg Tab 800 MG PO Q8H Y for PAIN SCALE 1 TO 10, #20 TAB 0 Refills Prov: Corinne Larsen 11/09/17 Disposition: 01 DISCHARGE HOME Condition: Stable Corinne Larsen Nov 09, 2017 09:29
[2017-11-09] MEDS ORDERED: KETOROLAC TROMETHAMINE 60 MG/2 ML (IM) VIAL IM ONE (09:30)
[2017-11-09] MEDS ORDERED: ORPHENADRINE INJ 60 MG/2 ML AMP IM ONE (09:30)
[2017-11-09] MEDS ORDERED: IBUP1TAB7 PO (09:32)
[2017-11-09] MEDS ORDERED: ROBA500T PO (09:32)
== END 2017-11-09 10:21 | disposition home or self-care (01) ==
LOC: NEPD 09:03
DX: M54.42 Lumbago with sciatica, left side (principal); G89.29 Other chronic pain; I10 Essential (primary) hypertension; F32.9 Major depressive disorder, single episode, unspecified; E78.00 Pure hypercholesterolemia, unspecified; G62.9 Polyneuropathy, unspecified; Z79.899 Other long term (current) drug therapy
CPT/HCPCS: 96372; 99284; J1885; J2360